=== PATIENT | male | born 1945 | race Caucasian/White ===

== ENCOUNTER → 2024-04-21 10:12 | Outpatient (REF) | payer OTHER, SELFPAY | LOC: HWRCS 10:12 | PROVIDERS: ATTENDING PHYSICIAN Internal Medicine Cardiovascular Disease; FAMILY PHYSICIAN Family Medicine | DX: I34.0 Nonrheumatic mitral (valve) insufficiency (principal) | CPT/HCPCS: 93306 ==

== ENCOUNTER → 2024-10-14 09:37 | Outpatient (REF) | payer OTHER, SELFPAY | LOC: RAD 09:37 | PROVIDERS: ATTENDING PHYSICIAN Student in an Organized Health Care Education/Training Program | DX: I80.9 Phlebitis and thrombophlebitis of unspecified site (principal) | CPT/HCPCS: 93971 ==

== ENCOUNTER → 2025-02-02 12:12 | Outpatient (REF) | payer OTHER, SELFPAY | LOC: HWRAD 12:12 | PROVIDERS: ATTENDING PHYSICIAN Student in an Organized Health Care Education/Training Program; REFERRING PHYSICIAN Family Medicine | DX: G62.9 Polyneuropathy, unspecified (principal) | CPT/HCPCS: 72110 ==